=== PATIENT | female | born 1980 | race Caucasian/White ===

== ENCOUNTER 2017-04-02 23:11 | Emergency (ER) | payer OTHER, MEDICARE ==
[~2017-04-02] VITALS: Ht 170.2 cm; Wt 104.3 kg
[~2017-04-02 23:11] MED LIST: AMOXICILLIN500 M2 PO; AMOXICILLIN500 M3 PO; NAPROSYN500 M1 PO; PROAIR HFA8.5 GM INH; SINGULAIR10 M1 PO
[2017-04-03 00:07] LABS: ABSOLUTE BASOPHIL COUNT 0 /CUMM (0.0-0.2); ABSOLUTE EOSINOPHIL COUNT 0.3 /CUMM (0.0-0.7); ABSOLUTE GRANULOCYTE CT 3.6 /CUMM (1.4-6.5); ABSOLUTE LYMPH COUNT 3.1 /CUMM (1.2-3.4); ABSOLUTE MONOCYTE COUNT 0.5 /CUMM (0.10-0.60); BASOPHIL % 0.6 % (0.0-2.0); EOSINOPHIL % 3.6 % (0-5); GRANULOCYTE % 47.9 % (42.2-75.2); HEMATOCRIT 39.9 % (37-47); MEAN CORPUSCULAR HGB 33.6 PG (27.0-31.0); MEAN CORPUSCULAR HGB CONC 34.5 G/DL (33.0-37.0); MEAN CORPUSCULAR VOLUME 97.2 FL (81.0-99.0); PLATELET COUNT 242 /CUMM (130-400); RBC DISTRIBUTION WIDTH 11.9 % (11.5-14.5); RED BLOOD CELL CT 4.11 /CUMM (4.20-5.40); WHITE BLOOD CELL COUNT 7.4 /CUMM (4.8-10.8)
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
[2017-04-03] MEDS ORDERED: ESCITALOPRAM OX10 MG PO (11:17)
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
[2017-04-03 14:51] VITALS: BP 137/86
== END 2017-04-03 15:41 ==
LOC: ERH 23:11
PROVIDERS: Emergency Medicine
DX: F10.121 Alcohol abuse with intoxication delirium (principal); F32.9 Major depressive disorder, single episode, unspecified
CPT/HCPCS: 80307; 96372; G0463; G0480; J1200; J1630